=== PATIENT | female | born 1970 | race Hispanic/Latino ===

== ENCOUNTER 2024-08-18 11:06 | Emergency (ER) | payer BC ==
[~2024-08-18] VITALS: Ht 152.4 cm; Wt 97.5 kg
--- NOTE | 2024-08-18 11:19 | ERN ---
ED Note History of Present Illness Stated Complaint: NAUSEA AND WEAKNESS Chief Complaint: Weakness Time Seen by MD: 11:07 Time Seen by Midlevel: 11:07 Dictation: Patient is a 54-year-old female with a history of anemia, asthma who presents to the emergency department with complaints of generalized body weakness, nausea onset Sunday. Patient denies any chest pain, headache, dizziness, abdominal pain vomiting or diarrhea. Denies any other complaints. Home Meds Active Scripts Ondansetron (Ondansetron Odt) 4 Mg Tab.rapdis, 4 MG PO Q6HPRN PRN for nausea, #16 TAB 0 Refills Prov:KAT KIRK [facility] 08/18/24 Nitrofurantoin Monohyd/M-Cryst (Macrobid 100 mg Capsule) 100 Mg Capsule, 1 CAP PO BID for 5 Days, #10 CAP 0 Refills Prov:KAT KIRK [facility] 08/18/24 Reported Medications Multivit-Min/Iron/FA/Vit K/Lut (Centrum Silver Women Tablet) 8 Mg Iron-400 Mcg- 50 Mcg-300 Mcg Tablet, 1 TAB PO DAILY for 30 Days, #30 TAB 0 Refills 08/18/24 Past Medical History RN Note Reviewed/Agreed w/PFSH: Yes Review of System Dictation Constitutional: Negative for fever,chills, and weight loss Eyes: Negative for injury, pain,redness, and discharge ENT: Negative for injury,pain or swelling Cardiovascular: Negative for chest pain, palpitations, and edema Respiratory: Negative for shortness of breath, cough, and wheezing, Abdomen/GI: Negative for abdominal pain,vomiting, diarrhea, and constipation positive for nausea Back: Negative for injury and pain : Negative for injury, bleeding and discharge MS/Extremity: Negative for injury and deformity Skin: Negative for rash, and discoloration Neuro: Negative for headache, numbness, tingling, and seizure positive for weakness Psych: Negative for suicide ideation, homicidal ideation, and hallucinations Initial Vital Sign VS Vital Signs Date Time Temp Pulse Resp B/P (MAP) Pulse Ox O2 Delivery O2 Flow Rate FiO2 08/18/24 11:08 98.4 84 16 167/86 99 Room Air 0 08/18/24 12:00 21 Physical Exam Dictation Vital Signs reviewed General Appearance: Alert, oriented x 3, no acute distress, well developed, nourished. Head and Face: non-traumatic. Eyes: PERRL, pink conjunctivas, eyelid no trauma, anterior chamber with arcus senilis. Ears: Pinnas intact and no signs of trauma or erythema ear canals clear and no discharge TM no erythema Nose: No discharge, no bleeding. Oropharynx: Mouth normal, tongue pink. pharynx clear,no erythema, tonsils no exudates, no abscesses noted, mucous membrane moist Neck: Supple, non-tender, no thyromegaly, no masses, no JVD, no bruits Breast:Deferred Chest:No tenderness, no crepitus, no paradoxical movement, no retractions Lungs:Clear, well-ventilated, symmetric, no rales, no wheezing, no rhonchi, no stridor, good breath sounds bilaterally Heart: Regular rate, regular rhythm, no murmur, no gallops Vascular: no peripheral edema, Abdomen: Soft, positive bowel sounds, nondistended, no guarding, nontender, no rebound, no masses no hepatomegaly, no splenomegaly, no Yang's sign, no hernias. Rectal: Deferred Genital: Deferred Neurological: Normal speech, motor function intact, sensory function intact Musculoskeletal: Neck nontender, full range of motion, back nontender, full range of motion, Extremities: nontender, full range of motion Skin: Color pink, dry, no turgor, no rash, no lacerations, no abrasions, no contusions. Lymphatic: Deferred Results (Laboratory/Radiology) Laboratory/Radiology Laboratory Tests Test 08/18/24 11:49 08/18/24 14:00 White Blood Count 11.6 K/uL (4.8-10.8) H Red Blood Count 5.15 MIL/uL (4.00-5.50) Hemoglobin 12.2 g/dL (12.0-16.0) Hematocrit 39.4 % (36-48) Mean Corpuscular Volume 76.5 fL (79-99) L Mean Corpuscular Hemoglobin 23.7 pg (27.0-33.0) L Mean Corpuscular Hemoglobin Concent 31.0 g/dL (32.0-36.0) L Red Cell Distribution Width 16.6 % (11.0-15.5) H Platelet Count 313 K/uL (130-400) Mean Platelet Volume 11.4 fL (7.5-10.5) H Immature Granulocyte % (Auto) 0.3 % (0-1) Neutrophils (%) (Auto) 63.9 % (40.0-77.0) Lymphocytes (%) (Auto) 28.3 % (21.0-51.0) Monocytes (%) (Auto) 6.4 % (3.0-13.0) Eosinophils (%) (Auto) 0.6 % (0.0-8.0) Basophils (%) (Auto) 0.5 % (0.0-5.0) Neutrophils # (Auto) 7.4 K/uL (1.8-7.7) Lymphocytes # (Auto) 3.3 K/uL (1.0-4.8) Monocytes # (Auto) 0.7 K/uL (0.1-1.0) Eosinophils # (Auto) 0.07 K/uL (0.00-0.70) Basophils # (Auto) 0.06 K/uL (0.00-0.20) Absolute Immature Granulocyte (auto 0.04 K/uL (0-1) Nucleated Red Blood Cells 0.0 % (0.0-0.19) Red Blood Cell Morphology See comments Sodium Level 138 mmol/L (136-145) Potassium Level 3.9 mmol/L (3.5-5.1) Chloride Level 102 mmol/L (101-111) Carbon Dioxide Level 28 mmol/L (21-32) Blood Urea Nitrogen 8 mg/dL (7-18) Creatinine 0.9 mg/dL (0.5-1.0) Glomerular Filtration Rate Calc 77 mL/min (>90) Random Glucose 154 mg/dL (70-105) H Total Calcium 9.0 mg/dL (8.5-10.1) Total Creatine Kinase 119 U/L (21-232) Troponin I High Sensitivity 5 ng/L (4-50) Urine Color LIGHT-YELLOW (YELLOW) Urine Appearance CLOUDY (CLEAR) H Urine pH 6.0 (5.0-8.0) Urine Specific [place] 1.009 (1.001-1.031) Urine Protein NEGATIVE mg/dL (NEGATIVE) Urine Glucose (UA) 30 mg/dL (NEGATIVE) H Urine Ketones NEGATIVE mg/dL (NEGATIVE) Urine Occult Blood LARGE (NEGATIVE) H Urine Nitrate 2+ (NEGATIVE) H Urine Bilirubin NEGATIVE mg/dL (NEGATIVE) Urine Urobilinogen 0.2 mg/dL (0.2-1.0) Urine Leukocyte Esterase 500 Rashawn/uL (NEGATIVE) H Urine RBC TNTC /HPF (0-1) H Urine WBC TNTC /HPF (0-1) H Urine Squamous Epithelial Cells RARE /HPF (0-2) Urine Bacteria MOD /HPF (None Seen) Urine HCG, Qualitative NEGATIVE (NEGATIVE) REASON: weakness ORDERING PHYSICIAN: KAT KIRK [facility] SPECIALIST PROCEDURE: CXR1VW - CHEST 1VW CHEST 1VW HISTORY: Weakness COMPARISON: None FINDINGS: A frontal projection of the chest was obtained. No acute pulmonary infiltrates is seen. The heart is normal in size. Prominent interstitial markings are seen. No evidence of aortic calcification is seen. IMPRESSION: 1. No acute pulmonary infiltrate is seen. DICTATED BY: AMBER SUTTON MD DATE: 08/18/24 1246 Labs Reviewed?: Yes EKG: (+) rhythm (Sinus Rhythm) EKG Comment: Date:08/18/2024 Time:1124 Ventricular rate:78 AR interval:141 QRS duration:100 QT/QTc:394 EKG interpretation: Sinus rhythm Reviewed by ED Attending no STEMI ED Course ED Course Orders Procedure Category Date Status Time Cbc With Differential LAB 08/18/24 Complete 11:14 Chest 1vw RAD 08/18/24 Resulted 11:14 12 Lead Ekg Tracing- EKG 08/18/24 Complete Technical 11:14 0.9%Nacl 1000ml (Ns PHA 08/18/24 Complete 1000ml) 11:30 Ondansetron 4mg Inj PHA 08/18/24 Complete (Zofran 4mg Inj) 11:30 Creatine Kinase, Total LAB 08/18/24 Complete 11:14 Troponin I High LAB 08/18/24 Complete Sensitivity 11:14 Urinalysis Profile LAB 08/18/24 Complete 11:14 Basic Metabolic Panel LAB 08/18/24 Complete 11:14 ,Urine Test LAB 08/18/24 Complete 11:14 Culture Urine JARRETT 08/18/24 Complete 14:15 Ceftriaxone 1g Vial PHA 08/18/24 Complete (Rocephine 1g Inj) 14:30 Current Medications Medications (Trade) Dose Ordered Sig/Charlie Route PRN Reason Start Time Stop Time Status Last Admin Dose Admin Ceftriaxone Sodium (ROCEphine 1G INJ) 1 gm ONCE ONCE IVPB 08/18/24 14:30 08/18/24 16:17 DC Ondansetron HCl (zoFRAN 4MG INJ) 4 mg ONCE ONCE IVP 08/18/24 11:30 08/18/24 12:28 DC Sodium Chloride 1,000 ml @ 0 mls/hr ONCE ONCE IV 08/18/24 11:30 08/18/24 12:28 DC Vital Signs Date Time Temp Pulse Resp B/P (MAP) Pulse Ox O2 Delivery O2 Flow Rate FiO2 08/18/24 12:00 98.1 69 15 160/82 98 Room Air* 0 21 08/18/24 11:08 98.4 84 16 167/86 99 Room Air 0 Medical Decision Making MDM Patient is a 54-year-old female with a history of anemia, asthma who presents to the emergency department with complaints of generalized body weakness, nausea onset Sunday. Patient denies any chest pain, headache, dizziness, abdominal pain vomiting or diarrhea. Denies any other complaints. He showed mild leukocytosis, no anemia, chemistry showed no electrolyte imbalance, GFR 77, negative troponin, negative CK chest x-ray unremarkable. Patient was positive for nitrites and leukocyte esterase. Patient will be treated with the antibiotics. Patient in no acute distress, nontoxic appearance. Stable vital signs. We will be discharged to follow up with primary doctor. Differential diagnosis: Dehydration, ACS, electrolyte imbalance, gastroenteritis Need for hospitalization: Patient does not meet criteria for hospitalization. There are no social concerns with this patient. DX & DISP Disposition: Discharge Departure Impression: Primary Impression: Urinary tract infection Additional Impressions: Nausea, Weakness Condition: Stable Scripts Ondansetron (Ondansetron Odt) 4 Mg Tab.rapdis 4 MG PO Q6HPRN PRN for nausea, #16 TAB 0 Refills Prov: KAT KIRK [facility] 08/18/24 Nitrofurantoin Monohyd/M-Cryst (Macrobid 100 mg Capsule) 100 Mg Capsule 1 CAP PO BID for 5 Days, #10 CAP 0 Refills Prov: KAT KIRK [facility] 08/18/24 Additional Instructions: Please take medications as prescribed. Follow up with your primary doctor in 1- 2 days. Finish your antibiotics until finished. If symptoms worsen please return to ER. FOLLOW-UP WITH PRIMARY CARE PROVIDER IN 1 TO 2 DAYS. TAKE MEDICATIONS DIRECTED HERE IN THE EMERGENCY ROOM. OKAY TO CONTINUE HOME MEDICATIONS UNLESS OTHERWISE DISCUSSED DURING YOUR VISIT IN THE EMERGENCY ROOM TODAY. RETURN TO YOUR NEAREST EMERGENCY ROOM IF SYMPTOMS WORSEN OR IF THERE IS NO IMPROVEMENT. CALL 911 IF YOU NEED IMMEDIATE ASSISTANCE. TAKE TYLENOL OR MOTRIN OVER-THE- COUNTER NEEDED AND IF NO CONTRAINDICATIONS ARE PRESENT. INCREASE ORAL HYDRATION. A WOUND CULTURE OR URINE CULTURE WAS ORDERED HERE IN THE EMERGENCY ROOM DEPARTMENT PLEASE FOLLOW-UP WITH PRIMARY CARE PROVIDER AND ADVISE THEM TO GET REPEAT PORTS FROM OUR FACILITY. IF YOU HAD ANY DEMI WRAP/SPLINTS THAT WERE APPLIED HERE, PLEASE DO NOT REMOVE THEM UNTIL YOU SEE YOUR PRIMARY CARE OR SPECIALTY. Referrals: SELF,REFERRAL (PCP) Time of Disposition: 14:37 I have reviewed the case, and I agree with, Diagnosis and Plan KAT KIRK Aug 18, 2024 11:19 DANGELO MORGAN DO Aug 19, 2024 07:39
[2024-08-18] MEDS ORDERED: 0.9%NACL 1000ML 1,000 ML IV ONE (11:30)
[2024-08-18] MEDS ORDERED: ondanSETRON 4MG INJ IVP ONE (11:30)
[2024-08-18 12:00] VITALS: BP 160/82; PULSE 69; RESP 15; TEMP 98.1; O2SAT 98
[2024-08-18 12:05] LABS: BASOPHILS # (AUTO) 0.06 K/uL (0.00-0.20); BASOPHILS % (AUTO) 0.5 % (0.0-5.0); EOSINOPHILS # (AUTO) 0.07 K/uL (0.00-0.70); EOSINOPHILS % (AUTO) 0.6 % (0.0-8.0); HEMATOCRIT 39.4 % (36-48); IMMATURE GRANULOCYTE ABSOLUTE 0.04 K/uL (0-1); LYMPHOCYTES # (AUTO) 3.3 K/uL (1.0-4.8); LYMPHOCYTES % (AUTO) 28.3 % (21.0-51.0); MEAN CORPUSCULAR HEMOGLOBIN 23.7 pg (27.0-33.0); MEAN CORPUSCULAR VOLUME 76.5 fL (79-99); MONOCYTES # (AUTO) 0.7 K/uL (0.1-1.0); MONOCYTES % (AUTO) 6.4 % (3.0-13.0); NEUTROPHILS # (AUTO) 7.4 K/uL (1.8-7.7); NEUTROPHILS % (AUTO) 63.9 % (40.0-77.0); PLATELET COUNT (AUTO) 313 K/uL (130-400); RED BLOOD CELL COUNT(AUTO) 5.15 MIL/uL (4.00-5.50); RED CELL DISTRIBUTION WIDTH 16.6 % (11.0-15.5); WHITE BLOOD COUNT (AUTO) 11.6 K/uL (4.8-10.8)
[2024-08-18 12:13] LABS: CREATININE 0.9 mg/dL (0.5-1.0); POTASSIUM 3.9 mmol/L (3.5-5.1)
[2024-08-18] MEDS ORDERED: MULT-1250 PO (12:23)
--- NOTE | 2024-08-18 12:23 | NUR ---
HOME MEDICATIONS IN SYSTEM. PENDING TO BE RECONCILED.
--- NOTE | 2024-08-18 12:50 | HMCIMG ---
CHEST 1VW HISTORY: Weakness COMPARISON: None FINDINGS: A frontal projection of the chest was obtained. No acute pulmonary infiltrates is seen. The heart is normal in size. Prominent interstitial markings are seen. No evidence of aortic calcification is seen. IMPRESSION: 1. No acute pulmonary infiltrate is seen.
--- NOTE | 2024-08-18 13:00 | NUR ---
GAVE HER A BOLUS OF NSS FOLLOWING PHYSICIANS ORDERS. PATIENT REFUSED ZOFRAN. STATED SHE WAS NOT NAUSEOUS.
--- NOTE | 2024-08-18 13:28 | EKG ---
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
[2024-08-18 14:13] LABS: APPEARANCE,URINE CLOUDY (CLEAR); BILIRUBIN,URINE NEGATIVE (NEGATIVE); COLOR,URINE LIGHT-YELLOW (YELLOW); GLUCOSE, URINE (UA) 30 mg/dL (NEGATIVE); KETONES,URINE NEGATIVE (NEGATIVE); LEUKOCYTE ESTERASE ,URINE 500 Leu/uL (NEGATIVE); NITRATE,URINE 2+ (NEGATIVE); OCCULT BLOOD,URINE LARGE (NEGATIVE); PROTEIN,URINE NEGATIVE (NEGATIVE); UROBILINOGEN,URINE 0.2 mg/dL (0.2-1.0)
[2024-08-18 14:15] LABS: ADD UA MICROSCOPIC YES
[2024-08-18 14:16] LABS: HCG,QUALITATIVE URINE NEGATIVE (NEGATIVE)
[2024-08-18 14:18] LABS: BACTERIA,URINE MOD /HPF (None Seen); MUCUS,URINE RARE LPF (None Seen); RBC,URINE TNTC /HPF (0-1); SQUAMOUS EPITHELIAL CELL,UR RARE /HPF (0-2); WBC,URINE TNTC /HPF (0-1)
[2024-08-18] MEDS ORDERED: cefTRIAXone 1G VIAL IVPB ONE (14:30)
[2024-08-18] MEDS ORDERED: NITR100C4 PO (14:38)
[2024-08-18] MEDS ORDERED: ONDA-243 PO (14:38)
== END 2024-08-18 15:30 | disposition home or self-care (01) ==
LOC: EDH 11:06
DX: N39.0 Urinary tract infection, site not specified (principal); R11.0 Nausea; R53.1 Weakness; Z79.899 Other long term (current) drug therapy
CPT/HCPCS: 36415; 71045; 80048; 81001; 81025; 82550; 84484; 85025; 87086; 87186; 93005; 99284